=== PATIENT | male | born 1985 | race Hispanic/Latino ===

== ENCOUNTER 2023-01-31 15:31 | Emergency (ER) | payer BC, OTHER, SELFPAY ==
--- NOTE | ~2023-01-31 | XR_ITS ---
Clinical Indication: Chest pain PA and lateral views of the chest: Comparison: None Findings: The lungs are clear, without evidence of focal consolidation or pleural effusion. Cardiome diastinal silhouette is within normal limits. Bones and soft tissues are unremarkable. Impression: Normal chest. Reviewed, dictated and finalized at location . Impression: Normal chest.
--- NOTE | 2023-01-31 15:37 | ED.GENADULT ---
HPI - General Adult General Chief complaint: Chest Pain Stated complaint: Chest Pain Time Seen by Provider: 01/31/23 15:36 Source: patient Mode of arrival: ambulatory Limitations: no limitations History of Present Illness HPI narrative: 37-year-old male patient presents to the [facility] with complaints of chest pain with left-sided arm pain and numbness and tingling that comes and goes. Patient states the chest pain is intermittently. Patient states that when the chest pain occurs he does have shortness of breath and feet and feelings of doom. Patient was evaluated had a full cardiac workup about a week ago at [facility]. Patient was told that everything checked out okay and referred him to follow-up with the primary doctor. Patient does have a follow-up appointment for March 20. Patient states he was given Tylenol and another medication from [facility] and was told it was musculoskeletal chest pain. Patient states that the medications did not work and he stopped taking them. Patient states he went saw a massage therapist about 2 days ago and got shot in the hip and was told it helps a lot for the chest pain. Patient states at helped for couple hours and now the chest pain has come back. Patient states when the chest pain does come back he rates it about 9 to 10/10. Patient's significant other states that when the chest pain occurs he has significant feelings of overwhelming doom. Related Data Allergies Allergy/AdvReac Type Severity Reaction Status Date / Time No Known Allergies Allergy Verified 01/31/23 15:57 Review of Systems Review of Systems: CONSTITUTIONAL: Denies fever, chills, or sweats. EYES: Denies visual changes, redness, or discharge. ENT: Denies rhinorrhea, congestion, sore throat, or otalgia. CARDIOVASCULAR: positive chest pain, denies palpitations, or edema. RESPIRATORY: Denies cough, positive intermittent dyspnea. GASTROINTESTINAL: Denies abdominal pain, nausea, vomiting, or diarrhea. GENITOURINARY: Denies dysuria or hematuria. SKIN: Denies rash or itching. MUSCULOSKELETAL: Denies back pain, joint pain, or myalgia. NEUROLOGIC: Denies headache, numbness, or weakness. PSYCHIATRIC: Denies anxiety or depression. PMFSH Comments At the time of my signature I agree with nursing past medical history, surgical, social, and family history. There is no relevant family history pertinent to the presenting complaint. Exam Narrative: GENERAL: Well-appearing, well-nourished, and in no acute distress. HEAD: Normocephalic, atraumatic. EYES: PERRLA and EOMI. ENT: Nares clear, no rhinorrhea or epistaxis. Mucous membranes moist. NECK: Supple. No lymphadenopathy CHEST: Clear to auscultation. No respiratory distress. HEART: Regular rate and rhythm. No murmur heard. Normal peripheral pulses. ABDOMEN: Soft, nontender, nondistended, normal active bowel sounds. EXTREMITIES: Normal range of motion. No edema. SKIN: Warm, dry, no rash. NEURO: No focal deficits. Alert and oriented x3. Course Course Level of Care: Express Care Visit Reevaluation(s) Reevaluation #1: Patient's x-ray is negative and EKG is normal. Discussed with patient that given the fact that he had a complete cardiac workup about a week ago at [facility] as well as ir is no concerning evidence of any cardiac related issue at this time I think that we can safely discharge patient home. Encouraged patient to continue to follow-up with his primary doctor that he is scheduled to see March 20. Discussed with patient that if symptoms worsen or any new symptoms develop I highly encouraged him to go the ER further evaluation treatment. We will go ahead and try giving him some hydroxyzine to see if this possibly help some of the anxiety issues. Patient verbalized understanding denies any other questions or concerns at this time Date: 01/31/23 Time: 16:58 Vital Signs Vital signs: Vital Signs Temperature 36.6 C 01/31/23 15:54 Pulse Rate 64
--- NOTE | 2023-01-31 15:53 | ECG_ITS ---
Measurements Intervals [place] Rate: 65 P: 45 OR: 200 QRS: -19 QRSD: 105 T: 12 QT: 353 QTc: 369 Interpretive Statements SINUS RHYTHM POSSIBLE RIGHT VENTRICULAR CONDUCTION DELAY [RSR (QR) IN V1/V2] MINIMAL VOLTAGE CRITERIA FOR LVH, CONSIDER NORMAL VARIANT [MEETS CRITERIA IN ONE OF: R(aVL), S(V1), R(V5), R(V5/V6)+S(V1)] NO PREVIOUS ECG AVAILABLE FOR COMPARISON Electronically Signed On 02-01-2023 8:29:17 CDT by Natalya Prieto M.D.
[2023-01-31 15:54] VITALS: BP 170/96; PULSE 64; RESP 16; TEMP 36.6; O2SAT 100
[2023-01-31 16:51] VITALS: BP 148/98
[2023-01-31 17:05] VITALS: BP 141/92
== END 2023-01-31 17:05 | disposition home or self-care (01) ==
PROVIDERS: Emergency Provider Nurse Practitioner Family
DX: R07.89 Other chest pain (principal); F41.9 Anxiety disorder, unspecified
CPT/HCPCS: 71046; 93005; 99203; G0463

== ENCOUNTER 2023-02-06 11:15 | Emergency (ER) | payer BC, OTHER, SELFPAY ==
[2023-02-06] VITALS (17 sets, daily range): BP systolic 152–168; BP diastolic 100–109; PULSE 63–90; RESP 14–24; TEMP 36.6; O2SAT 98–100
--- NOTE | ~2023-02-06 | XR_ITS ---
Clinical Indication: Chest pain PA and lateral views of the chest: Comparison: 01/31/2023 Findings: The lungs are clear, without evidence of focal consolidation or pleural effusion. Cardiome diastinal silhouette is within normal limits. Bones and soft tissues are unremarkable. Impression: Normal chest. Reviewed, dictated and finalized at location . Impression: Normal chest.
--- NOTE | 2023-02-06 11:17 | ECG_ITS ---
Measurements Intervals [place] Rate: 84 P: 39 UT: 190 QRS: -19 QRSD: 107 T: 30 QT: 351 QTc: 415 Interpretive Statements SINUS RHYTHM MODERATE VOLTAGE CRITERIA FOR LVH, CONSIDER NORMAL VARIANT [MEETS CRITERIA IN ONE OF: R(aVL), S(V1), R(V5), R(V5/V6)+S(V1)] COMPARED TO ECG 01/31/2023 15:56:41 NO SIGNIFICANT CHANGES Electronically Signed On 02-06-2023 14:27:10 CDT by Jessica Dong M.D.
[2023-02-06 11:30] LABS: Basophils Percent Auto 0.4 % (0.2-1.2); Eosinophils Percent Auto 0.3 % (0-4.4); Hematocrit 47.5 % (42.0-52.0); Hemoglobin 15.6 g/dL (14.0-18.0); Immature Granulocyte Absolute 0.03 K/mm3 (0.00-0.031); Immature Granulocyte Percent A 0.4 % (0-0.5); Lymphocytes Absolute Auto 1.44 K/mm3 (0.9-3.2); Lymphocytes Percent Auto 18.3 % (18.3-44.2); Mean Corpuscular HGB Conc 32.8 g/dl (32-36); Mean Corpuscular Hemoglobin 30.2 pg (26-34); Mean Corpuscular Volume 92.1 fl (80-100); Monocytes Absolute Auto 0.5 K/mm3 (0.1-0.6); Monocytes Percent Auto 6.4 % (2.6-8.5); Neutrophils Absolute Auto 5.8 K/mm3 (1.3-6.7); Neutrophils Percent Auto 74.2 % (45.5-73.1); Platelet Count Result 314 k/mm3 (150-375); Red Blood Count 5.16 M/mm3 (4.6-6.20); Red Cell Distribution Width 13.2 % (11.5-14.5); White Blood Count 7.9 K/mm3 (4.5-10.0)
[2023-02-06 11:39] LABS: Prothrombin Time 13.7 Seconds (11.1-14.7)
[2023-02-06 11:40] LABS: Partial Thromboplastin Time 27.4 SECONDS (22.3-36.8)
[2023-02-06 11:42] LABS: Alanine Aminotransferase 42 U/L (6-50); Albumin Level 4.6 g/dL (3.5-5.1); Alkaline Phosphatase 96 U/L (38-126); Anion Gap 9 mmol/L (8-16); Aspartate Amino Transferase 38 U/L (17-59); Bilirubin,Total 0.9 mg/dL (0.2-1.3); Blood Urea Nitrogen 14 mg/dL (9-20); Calcium 9.2 mg/dL (8.4-10.2); Carbon Dioxide 24 mmol/L (22-30); Chloride 104 mmol/L (98-107); Estimated CRCL calculation 109 ml/min; Estimated Glomerular Filt Rate > 60; Glucose 100 mg/dL (65-110); Lipase 67 U/L (23-300); Potassium 3.6 mmol/L (3.4-5.0); Sodium 137 mmol/L (137-145)
[2023-02-06 11:54] LABS: Troponin I < 0.012 ng/mL (0.000-0.034)
--- NOTE | 2023-02-06 12:52 | ED.CHESTPAIN ---
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 Admits to improvement with muscle relaxer medication but this made him drowsy. MD complaint: chest pain Timing of current episode: episodic and now resolved Prior episodes: Yes Onset: during exertion Pain location: left chest Pain radiation: none Severity: similar to previous episodes Relieving factors: medication-other (muscle relaxers) and rest Exacerbating factors: exertion Risk Factors Coronary artery disease risk factors: smoking history Thoracic aortic dissection risk factors: none Related Data Allergies Allergy/AdvReac Type Severity Reaction Status Date / Time No Known Allergies Allergy Verified 01/31/23 15:57 Review of Systems Constitutional: Constitutional: Denies fatigue and Denies fever(s) Eyes: Eyes: Denies change in vision ENT: Denies sore throat Cardiovascular: Cardiovascular: Denies rapid heart rate and Denies radiating jaw, neck or arm pain Respiratory: Respiratory: Denies cough and Denies dyspnea Gastrointestinal: Gastrointestinal: Denies abdominal pain, Denies diarrhea, Denies nausea and Denies vomiting Musculoskeletal: Musculoskeletal: Denies back pain Neurologic: Denies focal weakness and Denies numbness PMFSH Comments Patient admits to regular tobacco smoking. Denies illicit drug use. Admits to occasional alcohol consumption. Denies having any past medical or surgical history. Denies family history of early heart disease. Denies seeing a primary care physician in many years. Exam Const: General: no acute distress and alert; No diaphoretic Nutritional Appearance: well nourished Orientation/consciousness: patient oriented x3 HENMT: Head: normal to inspection Mouth: Yes moist mucous membranes Throat: posterior oropharynx normal Eyes: Conjunctivae: conjunctivae normal Pupils: Equal, round and reactive pupils present Chest: Chest palpation & inspection: normal inspection of the chest and no tenderness Resp: Effort & Inspection: normal respiratory effort and not labored Auscultation: clear to auscultation bilaterally Cardio: Rate: regular rate Rhythm: regular rhythm Heart sounds: no murmurs GI: Inspection: non-distended GI Palp: Yes Soft to palpation and No Tenderness to palpation present (GI) Skin: Rashes: no rashes Neuro: General: patient oriented x3, moves all extremities and no focal motor deficits Extrem: General: no pedal edema Course Vital Signs Vital signs: Vital Signs Temperature 98 F 02/06/23 11:23 Pulse Rate 90 02/06/23 11:23 Respiratory Rate 18 02/06/23 11:23 Blood Pressure 168/100 H 02/06/23 11:23 Pulse Oximetry 100 02/06/23 11:23 Oxygen Delivery Room Air 02/06/23 11:23 Temperature 98 F 02/06/23 11:23 Pulse Rate 69 02/06/23 15:17 Respiratory Rate 20 02/06/23 15:17 Blood Pressure 157/109 H 02/06/23 15:17 Pulse Oximetry 100 02/06/23 15:17 Oxygen Delivery Room Air 02/06/23 13:16 MDM - Chest Pain MDM Narrative Medical decision making narrative: Patient is a 37-year-old male present to the emergency department for the above complaint, vital signs without significant abnormalities, patient is hypertensive with a blood pressure 168/100. Patient appears in no acute distress resting comfortably. Patient has been administered an aspirin 325 mg p.o. for potential ACS. Laboratory analysis in addition to EKG and chest x-ray obtained with cardiac monitoring also ordered. Patient notes he hasn't seen a primary care physician in years but has an upcoming appointment in the next week. 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 Heart score
[2023-02-06] MEDS: ASPIRIN 81 MG CHEWABLE TABLET 324 MG PO (13:48)
--- NOTE | 2023-02-06 13:49 | PC.NURSE ---
this RN discussed with ERP to obtain 2nd trop when its time.
[2023-02-06 14:23] LABS: Troponin I < 0.012 ng/mL (0.000-0.034)
--- NOTE | 2023-02-06 14:43 | PC.NURSE ---
ERP Dr Soriano at bedside at this time.
== END 2023-02-06 15:25 | disposition home or self-care (01) ==
PROVIDERS: Preventive Medicine Aerospace Medicine; Emergency Provider Student in an Organized Health Care Education/Training Program
DX: R07.9 Chest pain, unspecified (principal)
CPT/HCPCS: 36415; 71046; 80053; 83690; 84484; 85025; 85610; 85730; 93005; 99284; A9270